=== PATIENT | female | born 2000 | race Caucasian/White ===

== ENCOUNTER 2021-08-16 15:30 | Emergency (ER) | payer BC, OTHER, SELFPAY ==
[2021-08-16 15:34] VITALS: BP 119/66; PULSE 88; RESP 15; TEMP 37.1; O2SAT 99; BMI 29.9
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
[2021-08-16 16:21] LABS: Basophils # 0.1 10^3/uL (0.0-0.1); Basophils % 0.3 %; Eosinophils # 0.1 10^3/uL (0.0-0.8); Eosinophils % 0.9 %; Hematocrit 41.2 % (37.0-47.0); Lymphocytes # 2.5 10^3/uL (0.8-4.8); Lymphocytes % 16.5 %; Mean Corpuscular Hemoglobin 30.2 pg (28.0-34.0); Monocytes # 0.5 10^3/uL (0.2-0.9); Monocytes % 3.3 %; Neutrophils # 12.04 10^3/uL (1.8-7.7); Nucleated Red Blood Cells % 0 %; Platelet Count 289 10^3/cmm (130-400); Red Blood Count 4.63 10^6/uL (4.1-5.3); Red Cell Distribution Width 12.1 % (12.1-15.1); White Blood Count 15.4 10^3/uL (4.0-10.0)
[2021-08-16 16:29] VITALS: BP 119/66; PULSE 87; RESP 16; O2SAT 95
[2021-08-16 16:34] VITALS: BP 119/66; PULSE 75; RESP 16; O2SAT 96
[2021-08-16 16:52] LABS: HCG, Serum Qual Negative (Negative)
[2021-08-16 17:20] LABS: Alanine Aminotransferase 22 U/L (0-33); Albumin Level 4.2 g/dL (3.5-5.2); Alkaline Phosphatase 69 IU/L (35-105); Aspartate Amino Transferase 26 U/L (0-32); Blood Urea Nitrogen 15 mg/dL (6-20); Calcium 9.5 mg/dL (8.5-10.5); Carbon Dioxide 20 mmol/L (22-29); Chloride 108 mmol/L (98-107); Globulin 2.4 g/dL (1.3-4.6); Glomerular Filtration Rate 105.6 mL/min (90-130); Glucose 133 mg/dL (65-115); Osmolality Calculated 293 mOsm/kg (285-295); Sodium 140 mmol/L (136-145); Total Bilirubin 0.2 mg/dL (0.15-1.2); Total Protein 6.6 g/dL (6.6-8.7)
[2021-08-16 18:23] LABS: Add Urine Microscopic? YES; Bacteria Urine 1+ /hpf; Bilirubin Urine Neg (Negative); Blood Urine 2+ (Negative); Glucose Urine UA Norm (Normal); Ketones Urine Negative (Negative); Leukocyte Esterase Urine Negative (Negative); Mucus Urine 1+ /hpf; Nitrate Urine Negative (Negative); Protein Urine 1+ (Negative); RBC Urine 0-4 /hpf (0-2); Squamous Epithelial Cell Urine 15-25 /hpf (0-5); Urine Appearance Hazy (CLEAR); Urine Color Yellow (Yellow); Urobilinogen Urine Neg (Negative); WBC Urine 0-4 /hpf (0-5); pH Urine 5 (5-7)
[2021-08-16 18:24] LABS: Add Urine Culture? No; Amorphous Sediment Urine 1+ /hpf; Fine Granular Casts Urine 0-4 /lpf
[2021-08-16 18:39] VITALS: RESP 19
[2021-08-16] MEDS: morphine 4 mg/mL SDV 1 mL IVP (18:39)
[2021-08-16] MEDS: tetanus-dipt-pertussis 0.5 mL SDV IM (18:40)
--- NOTE | 2021-08-17 10:27 | DCPLANNER ---
Addendum entered by Ruby Kwok 08/25/21 15:13: Patient had a follow up appointment scheduled for 08.18.[address] Sahu at ortho - patient did attend appointment. Original Note: e learning manager had message to schedule a follow up appointment for patient with ortho. e learning manager called the ortho clinic, spoke with Yee, gave clinic patients information. e learning manager was told that patients information will be printed and reviewed. Clinic will call patient with appointment information.
== END 2021-08-16 18:36 | disposition home or self-care (01) ==
PROVIDERS: Emergency Provider Family Medicine
DX: S92.144A Nondisplaced dome fracture of right talus, initial encounter for closed fracture (principal); V89.2XXA Person injured in unspecified motor-vehicle accident, traffic, initial encounter; Z23 Encounter for immunization
CPT/HCPCS: 29515; 70450; 70486; 72125; 73110; 73610; 80053; 81001; 84703; 85025; 90471; 90715; 96374; 99283; J2270

== ENCOUNTER 2021-08-30 10:43 | Outpatient (CLI) | payer BC, OTHER, SELFPAY ==
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
== END 2021-08-30 10:44 | disposition home or self-care (01) ==
PROVIDERS: Visit Provider Podiatrist Foot & Ankle Surgery
DX: S92.141A Displaced dome fracture of right talus, initial encounter for closed fracture (principal); S92.214A Nondisplaced fracture of cuboid bone of right foot, initial encounter for closed fracture; V89.2XXA Person injured in unspecified motor-vehicle accident, traffic, initial encounter
CPT/HCPCS: 73700; 87635

== ENCOUNTER 2021-09-01 07:05 | Day surgery (SDC) | payer BC, OTHER, SELFPAY ==
[2021-08-31 09:36] VITALS: BMI 28.7
[2021-09-01] VITALS (12 sets, daily range): BP systolic 103–138; BP diastolic 59–97; PULSE 50–91; RESP 13–19; TEMP 36.5–37.2; O2SAT 96–100
--- NOTE | 2021-09-01 | SCC_ITS ---
Procedure done: Open reduction internal fixation right talus CPT code 97734 8 seconds of fluoroscopic guidance, for a cumulative dose of 0.2 mGy, was provided to Dr. Sahu by the radiology department. C-arm images of the RIGHT ankle were saved for the patient's permanent record. [facility]
[2021-09-01 07:21] LABS: OR HCG Qualitative Urine Negative (Negative)
[2021-09-01] MEDS: CELEcoxib 200 mg Capsule 400 MG PO (07:38)
[2021-09-01] MEDS: gabapentin 300 mg Capsule PO (07:39)
[2021-09-01] MEDS: sodium chloride 0.9% 1,000 ML 30 ML IV (07:41)
--- NOTE | 2021-09-01 07:52 | W.PM.OPSUD ---
Surgery/Procedure H&P Update DATE OF PROCEDURE: September 01, 2021 DATE H&P PERFORMED: 08/30/21 CHANGES TO PREVIOUS DOCUMENTATION: none PREOP DIAGNOSIS: Right talus fracture PLANNED PROCEDURE: Operation Date: 09/01/21 08:20 Proposed Procedures p ORIF right talus 76521/s92.101a(Right) - Doni Sahu DPM
--- NOTE | 2021-09-01 08:03 | ANES.PREANE2 ---
Pre-Anesthetic Assessment Height/Weight: Height 1.78 m Weight 90.718 kg Temp Pulse Resp BP Pulse Ox 97.7 F 91 18 138/97 98 09/01/21 07:18 09/01/21 07:18 09/01/21 07:18 09/01/21 07:18 09/01/21 07:18 Preop Diagnosis: Right talus fracture Operation Date: 09/01/21 08:20 Proposed Procedures p ORIF right talus 28466/s92.101a(Right) - Doni Sahu DPM Familial anesthetic complications: None Was Beta Rinku taken within 24 hours: N/A Was Clonidine taken within 24 hours: N/A Last intake: Intake Last Liquid Date 08/31/21 Last Liquid Time 21:00 Last Solid Date 08/31/21 Last Solid Time 21:00 Social No alcohol and No tobacco Exam alert, oriented x 3, clear to auscultation bilaterally and regular rate & rhythm Airway Submandibular: within normal limits Cervical ROM: within normal limits Mallampati: Class II Dentition: full History/ROS No significant history except as noted Anesthetic Plan ASA status: 1 Anesthesia: General and Regional (specify below) (popliteal blk) Medications/Allergies Home Medications Medication Instructions Recorded Confirmed Last Taken Type hydrocodone 7.5 mg-acetaminophen tab 08/31/21 Unknown History 325 mg tablet Allergies Allergy/AdvReac Type Severity Reaction Status Date / Time No Known Allergies Allergy Verified 08/31/21 09:31 Current Medications Generic Name Dose Route Start Last Admin Trade Name Freq PRN Reason Stop Dose Admin Sodium Chloride 1,000 mls @ 30 mls/hr 09/01/21 07:45 09/01/21 07:41 Sodium Chloride 0.9% IV 09/02/21 07:44 30 mls/hr .Q24H DIVYA Administration PFSH Anesthesia Medical History No significant past medical history Surgical History No significant past surgical history Data Anesthesia Cardiac Studies: No Data to Display
--- NOTE | 2021-09-01 08:04 | ANES.PROC ---
Anesthesia Procedures Procedure/Date: 09/01/21 Nerve Block ^: Nerve Block 1: Main Anesthesia: general anesthesia Time Out Performed: Yes Consent: requested by attending/covering physician, from patient, risks and benefits reviewed and patient agrees to proceed Nerve block location: popliteal (right) Anesthesia monitors applied: pulse oximetry, EKG, BP cuff and oxygen Nerve block position: supine Anesthetic Used: ropivicaine 0.5% Amount of anesthesia used (mL): 30 Ultrasound used to: recognize landmarks Nerve Stimulator Used?: No Interscalene/Femoral BLK: 4 stimuplex 21 g needle used for position and inplane approach Injection: neg aspiration of heme Patient Tolerated Procedure: well Complications: none
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
--- NOTE | 2021-09-01 09:17 | XR_ITS ---
WS: [id number] Right ankle, 3 views, 09/01/2021 Clinical Data: post op Comparison: None. Findings: The fracture of the lateral aspect of the talus has been repaired with 2 orthopedic screws. There is a fiberglass cast surrounding the right ankle The remainder of the right ankle is unremarkable. XR/XR ankle RT min 3V* [id number] Impression: Internal fixation of lateral talar fracture of the right ankle.
[2021-09-01] MEDS: HYDROmorphone 1 mg/mL INJ 1 mL 0.5 MG IVP ×2 (09:28→10:17)
[2021-09-01] MEDS: oxyCODONE-APAP 10-325 mg Tablet 1 TAB PO (10:03)
[2021-09-01] MEDS: ketorolac 30 mg/mL INJ 15 MG IVP (10:24)
--- NOTE | 2021-09-01 16:18 | ANE.PACU2 ---
Inpatient post-anesthesia follow up: Airway intact: Yes Vital signs: Temperature 99.0 F Pulse Rate 60 Respiratory Rate 18 Blood Pressure 117/68 Pulse Oximetry 97 Oxygen Delivery Me thod Room Air Oxygen Flow Rate Fraction of Inspir ed Oxygen Hydration adequate: Yes Nausea and vomiting: No Pain level: 3 Mental status: Baseline Additional Comments: Partially affective pop blk, reasonable pain control
== END 2021-09-01 11:08 | disposition home or self-care (01) ==
PROVIDERS: Anesthesiology; Visit Provider Podiatrist Foot & Ankle Surgery
PROC: (CPT 28485; principal; 2021-09-01 08:10)
DX: S92.101A Unspecified fracture of right talus, initial encounter for closed fracture (principal); V89.2XXA Person injured in unspecified motor-vehicle accident, traffic, initial encounter
CPT/HCPCS: 28445; 64450; 73610; 76000; 76942; 84703; C1713; J0690; J1170; J1885; J2250; J2704; J2795; J3010; J7030

== ENCOUNTER → 2021-09-14 14:18 | Outpatient (BNVA) | payer BC, OTHER, SELFPAY | PROVIDERS: Visit Provider Podiatrist Foot & Ankle Surgery | DX: Z98.890 Other specified postprocedural states (principal) | CPT/HCPCS: 73610 ==

== ENCOUNTER → 2021-09-28 13:51 | Outpatient (BNVA) | payer BC, OTHER, SELFPAY | PROVIDERS: Visit Provider Podiatrist Foot & Ankle Surgery | DX: Z98.890 Other specified postprocedural states (principal) | CPT/HCPCS: 73610 ==

== ENCOUNTER 2021-10-04 07:30 | Outpatient (RCR) | payer BC, OTHER, SELFPAY | END 2021-10-28 23:59 | disposition home or self-care (01) | LOC: SPT 07:30 | PROVIDERS: Referring Provider Podiatrist Foot & Ankle Surgery; Visit Provider Podiatrist Foot & Ankle Surgery | DX: Z47.89 Encounter for other orthopedic aftercare (principal) | CPT/HCPCS: 97110; 97161 ==

== ENCOUNTER → 2021-10-10 08:59 | Outpatient (BNVA) | payer BC, OTHER, SELFPAY | PROVIDERS: Visit Provider Podiatrist Foot & Ankle Surgery | DX: Z98.890 Other specified postprocedural states (principal) | CPT/HCPCS: 73610 ==

== ENCOUNTER 2021-10-29 06:00 | Outpatient (RCR) | payer BC, OTHER, SELFPAY | END 2021-11-02 23:59 | disposition home or self-care (01) | LOC: SPT 06:00 | PROVIDERS: Referring Provider Podiatrist Foot & Ankle Surgery; Visit Provider Podiatrist Foot & Ankle Surgery | DX: S92.101G Unspecified fracture of right talus, subsequent encounter for fracture with delayed healing (principal); X58.XXXD Exposure to other specified factors, subsequent encounter | CPT/HCPCS: 97110 ==

== ENCOUNTER → 2021-10-31 09:24 | Outpatient (BNVA) | payer BC, OTHER, SELFPAY | PROVIDERS: Visit Provider Podiatrist Foot & Ankle Surgery | DX: Z98.890 Other specified postprocedural states (principal) | CPT/HCPCS: 73610 ==

== ENCOUNTER 2021-12-19 13:57 | Outpatient (CLI) | payer BC, OTHER, SELFPAY | END 2021-12-19 13:58 | disposition home or self-care (01) | LOC: SPT 13:58 | PROVIDERS: Visit Provider Podiatrist Foot & Ankle Surgery | DX: Z47.89 Encounter for other orthopedic aftercare (principal) | CPT/HCPCS: 97760; L3030 ==

== ENCOUNTER → 2023-01-14 15:00 | Outpatient (BNVA) | payer OTHER, SELFPAY | PROVIDERS: Visit Provider Obstetrics & Gynecology | DX: Z01.419 Encounter for gynecological examination (general) (routine) without abnormal findings (principal); N92.6 Irregular menstruation, unspecified | CPT/HCPCS: 83036; 83525; 84702; 87624 ==

== ENCOUNTER → 2023-01-31 13:35 | Outpatient (BNVA) | payer OTHER, SELFPAY | PROVIDERS: Visit Provider Obstetrics & Gynecology | DX: N92.6 Irregular menstruation, unspecified (principal) | CPT/HCPCS: 76830 ==